=== PATIENT | male | born 1960 | race Hispanic/Latino ===

== ENCOUNTER → 2021-10-02 | Outpatient (CLI) | payer BC ==
[~2021-10-02] MED LIST: AMLO-257 PO; CEPH500C2 PO; DOXY100C5 PO; IOHEXOL-350 75 ML VIAL IV ONE; LOSA100T58 PO
== END | disposition home or self-care (01) ==
LOC: RAH 10:38
PROVIDERS: ATTEND Surgery
DX: E21.0 Primary hyperparathyroidism (principal)
CPT/HCPCS: 70492; Q9967